=== PATIENT | female | born 1990 | race Caucasian/White ===

== ENCOUNTER 2019-11-20 12:20 | Inpatient (IN) | payer MEDICAID, SELFPAY ==
[2019-11-20] VITALS (7 sets, daily range): BP systolic 107–171; BP diastolic 83–89; PULSE 80–101; RESP 16–20; TEMP 36.6–36.8; O2SAT 96–99; BMI 37.2
--- NOTE | 2019-11-20 12:34 | W.ED.PSYCH ---
HPI - Psych General: Chief Complaint: Psychiatric Symptoms Stated Complaint: substance abuse Time Seen by Provider: 11/20/19 12:25 Source: patient and EMS Mode of arrival: EMS Limitations: no limitations History of Present Illness: HPI Narrative: 28-year-old female who is here from [place] as a direct admit. Patient stopping in the ER for COVID screening. She has a history of depression along with fentanyl abuse. Patient is voluntarily admitted to our psych unit. She denies any cough or fever. Patient is well-appearing here. Associated symptoms: Reports depression Review of Systems Const: Denies: fever(s), chills, body aches or change in appetite Eyes: Denies: blurry vision or eye discomfort ENMT: Denies: throat pain or dental pain Card: Denies: chest pain Resp: Denies: dyspnea GI: Denies: abdominal pain, nausea, vomiting or diarrhea : Denies: dysuria Musc: Denies: neck pain or back pain Skin/Breast: Denies: rash Neuro: Denies: headache(s) Psych: Reports: depression Uzair/Lymph: Denies: easy bruising All/Imm: Denies: urticaria Physical Exam Const: COMMON NORMALS: no acute distress, patient oriented x3 and healthy appearing HENMT: COMMON NORMALS: normocephalic and atraumatic HEAD & SCALP: normocephalic and atraumatic Eye: COMMON NORMALS: Equal, round and reactive pupils present and EOMs intact bilaterally PUPIL: Yes Equal, round and reactive pupils present Neck/C-Spine: COMMON NORMALS: full ROM and supple Chest: COMMONS NORMALS: normal inspection of the chest and normal palpation of entire chest wall Resp: COMMON NORMALS: normal respiratory effort, No retractions, No use of accessory muscles and clear to auscultation bilaterally AUSCULTATION: clear to auscultation bilaterally Cardio: COMMON NORMALS: regular rate, regular rhythm and No murmurs present (Cardio) RATE: regular rate RHYTHM: regular rhythm GI: COMMON NORMALS: Normal to inspection, nondistended, normoactive bowel sounds present, Soft to palpation, non-tender and no masses PALPATION: Yes Soft to palpation Extremity: COMMON NORMALS: normal to inspection and full ROM Neuro: COMMON NORMALS: patient oriented x3, moves all extremities and no focal motor deficits Psych: COMMON NORMALS: mental status grossly normal, Normal thought process present and cooperative THOUGHT PROCESS: Normal thought process present Skin: COMMON NORMALS: no rashes or lesions noted and no wounds GENERAL SKIN EXAM: no rashes or lesions noted MDM - Psych MDM Narrative: Medical decision making narrative: Patient presents here with depression and substance abuse. Patient's medically cleared here and is stable for admission to the psych unit Coding Level of Care Code ED Report Developer for Rosalinda Irene
[2019-11-20] MEDS: LORazepam 1 mg Tablet PO (13:00)
[2019-11-20] MEDS: methocarbamol 750 mg Tablet PO ×2 (15:34→21:48)
[2019-11-20] MEDS: dicyclomine 20 mg Tablet PO ×2 (15:34→21:48)
[2019-11-20] MEDS: hyDROXYzine 25 mg Capsule 50 MG PO ×2 (15:34→21:48)
--- NOTE | 2019-11-20 15:34 | PC.NURSE ---
PRN VISTARIL VISTARIL 5 MG PO PER PATIENT C/O ANXIETY. WILL CONTINUE TO MONITOR FOR MEDICATION EFFECTIVENESS.
--- NOTE | 2019-11-20 16:30 | PC.NURSE ---
PRN VISTARIL FOLLOW UP MEDICATION EFFECTIVE. NO FURTHER C/O ANXIETY. PATIENT LYING IN ROOM RESTING.
--- NOTE | 2019-11-20 16:39 | P.HP_ITS ---
Providers/Chief Complaint Admitting Physician: Jamey Concepcion Referral Source: Other ER ([facility]ly [facility], [facility]) Chief Complaint: substance abuse HPI NPU History of Present Illness Anaya Conley is a 28 year old female with whose brother, a former Marine, of an accidental overdose. His son, 3 years old, was left in orphan after his mother sold some fentanyl to a man who overdosed on it. The mother, having committed a felony in selling the drug, and her customer having fatally overdosed, mom was sent away for a very long time for felony murder. The 3-year-old is now living with the patient's stepmother and the patient does not want her son to end up a de facto orphan like her nephew. She has been using about a year, both heroin and fentanyl, and is so desperate to get out of the life that she decided to go into withdrawal and she is afraid she will fail, in which case she intends to fatally overdose on fentanyl like so many others. Needless to say, the patient is profoundly depressed. Review of Systems Narrative: Const: Denies: fever(s), chills, body aches or change in appetite Eyes: Denies: blurry vision or eye discomfort ENMT: Denies: throat pain or dental pain Card: Denies: chest pain Resp: Denies: dyspnea GI: Denies: abdominal pain, nausea, vomiting or diarrhea : Denies: dysuria Musc: Denies: neck pain or back pain Skin/Breast: Denies: rash Neuro: Denies: headache(s) Psych: Reports: depression Uzair/Lymph: Denies: easy bruising All/Imm: Denies: urticaria Meds NPU Home Medications Medication Instructions Recorded Confirmed Last Taken Type No Known Home Medications 11/20/19 11/20/19 Unknown History Allergies Allergy/AdvReac Type Severity Reaction Status Date / Time No Known Allergies Allergy Verified 11/20/19 12:48 [facility] NPU Other Psychiatric History: Other Psychiatric History: The patient has been grief stricken several times but has never sought psychiatric help nor taken any psychiatric medicines. This is her first hospitalization. Supplemental [facility] Information: The patient's grandfather killed himself. Her father attempted suicide twice. Her brother of fentanyl overdose. His is in [facility]. The patient has a 6-year-old son. 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 Mental Status Exam MSE Comments: This is a 28-year-old female who presents at her stated age. Mood is clearly despondent and affect is flat. Thought processes are integrated and free of any racing, blocking or looseness of association. There is no evidence of psychosis, such as but not limited to hallucinations, delusions and ideas of reference. Speech is of normal rate and volume, without aprosody dysarthria or pressure. Cognitive functions are intact and insight and judgment were fairly good. The patient denies any homicidal ideation and, given a chance to reenter recovery, she has no suicidal plans Vitals/I&O/Wt Last Vital Signs Temp 97.9 F 11/20/19 13:41 Pulse 101 H 11/20/19 13:41 Resp 18 11/20/19 13:41 BP 107/89 11/20/19 15:21 Pulse Ox 99 11/20/19 13:41 Weight last 48 hrs Weight 210 lb Weight 210 lb Physical Exam Narrative: EXAM NARRATIVE: Const: COMMON NORMALS: no acute distress, patient oriented x3 and healthy appearing HENMT: COMMON NORMALS: normocephalic and atraumatic HEAD & SCALP: normocephalic and atraumatic Eye: COMMON NORMALS: Equal, round and reactive pupils present and EOMs intact bilaterally PUPIL: Yes Equal, round and reactive pupils present Neck/C-Spine: COMMON NORMALS: full ROM and supple Chest: COMMONS NORMALS: normal inspection of the chest and normal palpation of entire chest wall Resp: COMMON NORMALS: normal respiratory effort, No retractions, No use of accessory muscles and clear to auscultation bilaterally AUSCULTATION: clear to auscultation bilaterally Cardio: COMMON NORMALS: regular rate, regular rhythm and No murmurs present (Cardio) RATE: regular rate RHYTHM: regular rhythm GI: COMMON NORMALS: Normal to inspection, nondistended, normoactive bowel sounds present, Soft to palpation, non-tender and no masses PALPATION: Yes Soft to palpation Extremity: COMMON NORMALS: normal to inspection and full ROM Neuro: COMMON NORMALS: patient oriented x3, moves all extremities and no focal motor deficits Psych: COMMON NORMALS: mental status grossly normal, Normal thought process present and cooperative Skin: COMMON NORMALS: no rashes or lesions noted and no wounds GENERAL SKIN EXAM: no rashes or lesions noted A&P Assessment and plan (1) Opiate addiction: Status: Acute (2) Major depressive disorder with current active episode: Status: Acute Involuntary Hold Information 96 Hour Hold: 96 Hour Involuntary Admission: No Attestations NPU Medical Necessity Statement*: This patient has just begun. I anticipate 8-10 midnights Time Spent in Patient Care: Greater than 35 minutes (>than 50% of time spent in counselling and/or direct pt care on unit) . 90 Coding Level of Care Code Acute Ceramic Painter for Rosalinda Irene Diagnoses Opiate addiction F11.20 Major depressive disorder with current active episode F32.9
[2019-11-20] MEDS: OLANZapine 5 mg ODT PO (17:12)
--- NOTE | 2019-11-20 17:12 | PC.NURSE ---
Addendum entered by Tiffanie Jarvis LPN 11/20/19 18:14: MEDICATION SOMEWHAT EFFECTIVE. PATIENT SITTING IN ROOM ON THE SIDE OF THE BED. Original Note: PRN ZYPREXA ZYDIS ZYPREXA ZYDIS 5MG PO PER PATIENT C/O AGITATION/ANXIETY. WILL CONTINUE TO MONITOR FOR MEDICATION EFFECTIVENESS.
[2019-11-20] MEDS: trazodone 50 mg Tablet PO ×2 (21:48→23:19)
[2019-11-20] MEDS: cloNIDine 0.1 mg Tablet PO (21:48)
[2019-11-20] MEDS: nicotine 2 mg Gum BUCCAL (23:17)
--- NOTE | 2019-11-20 23:30 | PC.NURSE ---
pt given scheduled hs clonidine, bentyl, robaxin as well as requested.nicorette, vistaril, and trazodone.
[2019-11-21 06:00] VITALS: BP 139/92; PULSE 99; RESP 16; TEMP 36.5; O2SAT 98
[2019-11-21 08:31] VITALS: BP 139/92
[2019-11-21] MEDS: cloNIDine 0.1 mg Tablet PO ×3 (08:31→20:51)
[2019-11-21] MEDS: dicyclomine 20 mg Tablet PO ×3 (08:31→20:51)
[2019-11-21] MEDS: methocarbamol 750 mg Tablet PO ×3 (08:31→20:51)
[2019-11-21] MEDS: levothyroxine 50 mcg Tablet PO (08:31)
[2019-11-21 13:29] VITALS: BP 118/80; PULSE 102; RESP 20; TEMP 36.7; O2SAT 98
--- NOTE | 2019-11-21 14:03 | P.PN_ITS ---
Subjective NPU Subjective: Interval history: The patient is wading through Mental Status Exam MSE Comments: This is a 28-year-old female who presents at her stated age. Mood is clearly despondent and affect is flat. Thought processes are integrated and free of any racing, blocking or looseness of association. There is no evidence of psychosis, such as but not limited to hallucinations, delusions and ideas of reference. Speech is of normal rate and volume, without aprosody dysarthria or pressure. Cognitive functions are intact and insight and judgment were fairly good. The patient denies any homicidal ideation and, given a chance to reenter recovery, she has no suicidal plans Vitals/I&O/Wt Last Vital Signs Temp 98.1 F 11/21/19 13:29 Pulse 102 H 11/21/19 13:29 Resp 20 H 11/21/19 13:29 BP 118/80 11/21/19 13:29 Pulse Ox 98 11/21/19 13:29 Weight last 48 hrs Weight 210 lb Weight 210 lb Physical Exam Narrative: EXAM NARRATIVE: EXAM NARRATIVE: Const: COMMON NORMALS: no acute distress, patient oriented x3 and healthy appearing HENMT: COMMON NORMALS: normocephalic and atraumatic HEAD & SCALP: normocephalic and atraumatic Eye: COMMON NORMALS: Equal, round and reactive pupils present and EOMs intact bilaterally PUPIL: Yes Equal, round and reactive pupils present Neck/C-Spine: COMMON NORMALS: full ROM and supple Chest: COMMONS NORMALS: normal inspection of the chest and normal palpation of entire chest wall Resp: COMMON NORMALS: normal respiratory effort, No retractions, No use of accessory muscles and clear to auscultation bilaterally AUSCULTATION: clear to auscultation bilaterally Cardio: COMMON NORMALS: regular rate, regular rhythm and No murmurs present (Cardio) RATE: regular rate RHYTHM: regular rhythm GI: COMMON NORMALS: Normal to inspection, nondistended, normoactive bowel sounds present, Soft to palpation, non-tender and no masses PALPATION: Yes Soft to palpation Extremity: COMMON NORMALS: normal to inspection and full ROM Neuro: COMMON NORMALS: patient oriented x3, moves all extremities and no focal motor deficits Psych: COMMON NORMALS: mental status grossly normal, Normal thought process present and cooperative Skin: COMMON NORMALS: no rashes or lesions noted and no wounds GENERAL SKIN EXAM: no rashes or lesions noted A&P Assessment and plan (1) Opiate addiction: Her systems requirements planner has organized a bed in a rehab program with placement to take place tomorrow. Status: Acute (2) Major depressive disorder with current active episode: The patient will require pharmacotherapy and recovery, taken with lots of psychotherapy to get through her grief over the horror that was her family Status: Acute Involuntary Hold Information 96 Hour Hold: 96 Hour Involuntary Admission: No Attestations NPU Medical Necessity Statement*: May anticipate 1 more midnight Time Spent in Patient Care: Greater than 35 minutes (>than 50% of time spent in counselling and/or direct pt care on unit) . 80 minutes Coding Level of Care Code Acute Box Toe Cementer for Rosalinda Irene Diagnoses Opiate addiction F11.20 Major depressive disorder with current active episode F32.9
[2019-11-21 15:12] VITALS: BP 118/80
[2019-11-21 15:23] LABS: Bilirubin Urine Neg (NEGATIVE); Blood Urine 2+ (Negative); Glucose Urine UA Norm (Normal); Ketones Urine Negative (Negative); Leukocyte Esterase Urine Negative (Negative); Nitrate Urine Negative (Negative); Protein Urine Neg (Negative); Specific Gravity, Urine 1.015 (1.005-1.030); Sulfosalicylic Acid Urine Negative (Negative); Urine Appearance Clear (CLEAR); Urine Color Yellow (Yellow); Urobilinogen Urine Norm (Negative); pH Urine 8 (5-7)
[2019-11-21 15:29] LABS: Bacteria Urine TRACE; Squamous Epithelial Cell Urine 0-4 (0-5)
[2019-11-21 15:30] LABS: Add Urine Culture? Yes; Trichomonas Urine 1+
[2019-11-21 20:21] VITALS: BP 150/89; PULSE 72; RESP 16; TEMP 36.7; O2SAT 98
[2019-11-21 20:51] VITALS: BP 150/89
[2019-11-21] MEDS: mirtazapine 15 mg Tablet PO (20:51)
[2019-11-21] MEDS: trazodone 50 mg Tablet PO ×2 (20:51→21:46)
[2019-11-21] MEDS: hyDROXYzine 25 mg Capsule 50 MG PO (20:51)
--- NOTE | 2019-11-21 21:24 | PC.NURSE ---
pt given scheduled clonidine (BP 150/89), bentyl, robaxin, remeron. pt also requested prn trazodone and visteril be given.
[2019-11-22 06:00] VITALS: BP 140/89; PULSE 78; RESP 16; TEMP 36.9; O2SAT 96
[2019-11-22] MEDS: methocarbamol 750 mg Tablet PO (07:43)
[2019-11-22] MEDS: cloNIDine 0.1 mg Tablet PO (07:43)
[2019-11-22] MEDS: dicyclomine 20 mg Tablet PO (07:43)
[2019-11-22] MEDS: levothyroxine 50 mcg Tablet PO (07:43)
[2019-11-22 07:45] VITALS: BP 140/89; PULSE 78; RESP 16; TEMP 36.9; O2SAT 96
--- NOTE | 2019-11-22 08:18 | P.DS_ITS ---
Diagnoses at Discharge Discharge Diagnosis (1) Opiate addiction: Status: Acute Problem details: Patient's been using for about a year. She is going to [facility] in [place]. (2) Major depressive disorder with current active episode: Status: Acute Problem details: There is a large component of grief. Reason for Visit Reason for Visit: substance abuse Hospital Course Hospital Course Placement in rehab is now in the offing. Grief continues. Involuntary Hold Information 96 Hour Hold: 96 Hour Involuntary Admission: No Mental Status Exam MSE Comments: This is a 28-year-old female who presents at her s tated age. Mood is clearly despondent and affect is flat. Thought processes are integrated and free of racing, blocking or looseness of association. There is no evidence of psychosis, such as but not limited to hallucinations, delusions and ideas of reference. Speech is of normal rate and volume, without aprosody, dysarthria or pressure. Cognitive functions are intact and insight and judgment are fairly good. The patient denies any homicidal ideation and, given a chance to reenter recovery, she has no suicidal plans. Physical Exam Narrative: EXAM NARRATIVE: Const: COMMON NORMALS: no acute distress, patient oriented x3, no limitations, healthy appearing and well nourished GENERAL APPEARANCE: cooperative and well developed HENMT: COMMON NORMALS: normocephalic, atraumatic, external ears normal, EAC's normal and Normal external nose present HEAD & SCALP: normal to inspection, normocephalic and atraumatic FACE & SINUS: normal facial exam and face symmetric NOSE: Normal external nose present and Normal nares present EXTERNAL EAR: Yes external ears normal EXTERNAL AUDITORY CANAL: EAC's normal MOUTH: Normal oral and palatal mucosa present, lip normal and tongue normal Eye: COMMON NORMALS: Equal, round and reactive pupils present and conjunctivae normal GENERAL EYE: appearance normal, both eyes and all related structures ALIGNMENT: Yes alignment normal PERIORBITAL: periorbital findings normal EYELID: eyelids normal CONJUNCTIVA: Yes conjunctivae normal SCLERA: sclerae normal PUPIL: Yes Equal, round and reactive pupils present Neck/C-Spine: COMMON NORMALS: full ROM, no lymphadenopathy, supple, no meningeal signs and no JVD GENERAL: Yes normal visual inspection and Yes trachea midline Chest: COMMONS NORMALS: normal inspection of the chest and normal palpation of entire chest wall and breasts. Resp: COMMON NORMALS: normal respiratory effort, No retractions and No use of accessory muscles EFFORT & INSPECTION: Yes able to speak in complete sentences and Yes symmetric chest movement AUSCULTATION: no crackles, no rales, no rhonchi and no wheezes Cardio: COMMON NORMALS: no JVD, regular rate, regular rhythm, S1 normal heart sound present and S2 normal heart sound present RATE: regular rate RHYTHM: regular rhythm HEART SOUNDS: S1 normal heart sound present, S2 normal heart sound present, no click, no gallops, no murmurs, no rubs and abnormal split S2 GI: COMMON NORMALS: Soft to palpation and No hepatosplenomegaly present PALPATION: Yes Soft to palpation, No Tenderness to palpation present (GI), No Guarding due to palpation present (GI), No Rigid due to palpation, Yes No hepatosplenomegaly present, No Hernia present, No Palpable mass present and No Pulsatile mass present : COMMON NORMALS: Yes no CVA tenderness BLADDER/KIDNEY EXAM: Yes no CVA tenderness EXTERNAL FEMALE EXAM: No Hernia present Back/Pelvis: COMMON NORMALS: no CVA tenderness, thoracic and lumbar spine normal to inspection, no thoracic nor lumbar tenderness and thoraco-lumbar ROM normal Extremity: COMMON NORMALS: normal to inspection, full ROM, capillary refill normal, no joint enlargement, no clubbing, cyanosis or edema and no calf tenderness Neuro: COMMON NORMALS: patient oriented x3, CN's II-XII intact bilaterally, moves all extremities, no focal motor deficits and no sensory deficits noted MENINGEAL SIGNS: Yes no meningeal signs SPEECH: speech normal Psych: See mental status. Skin: COMMON NORMALS: no rashes or lesions noted, turgor normal, no jaundice, no petechiae and no mottling GENERAL SKIN EXAM: no rashes or lesions noted and turgor normal Discharge Data Data Completed and Pending: Pending at discharge Category Date Time Status Urine Culture Rou abril Lab 11/21/19 14:57 Results Labs from last 24 hours 11/21/19 14:57 Urine Color Yellow Urine Appearance Clear Urine pH 8 H Ur Specific Gravit y 1.015 Urine Protein Neg Urine Glucose (UA) Norm Urine Ketones Negative Urine Blood 2+ H Urine Nitrate Negative Urine Bilirubin Neg Prot Sulfosalicyli c Acd Negative Urine Urobilinogen Norm Ur Leukocyte Janis ase Negative Urine RBC 10-15 H Urine WBC None Ur Squamous Epith Cells 0-4 H Amorphous Sediment Not Reportable Urine Bacteria Trace Urine Trichomonas 1+ H Vitals: Last Vital Signs Temp 98.5 F 11/22/19 07:45 Pulse 78 11/22/19 07:45 Resp 16 11/22/19 07:45 BP 140/89 11/22/19 07:45 Pulse Ox 96 11/22/19 07:45 Discharge Plan Discharge Patient Disposition: Rehab Fac w Plan Readm Condition: Stable Prescriptions: New levothyroxine 50 mcg Tablet 50 mcg PO DAILY 30 Days Qty: 30 RF: 3 mirtazapine 15 mg Tablet 15 mg PO BEDTIME 30 Days Qty: 30 RF: 3 No Action No Known Home Medications RF: 0 Discharge Orders: Discharge Order (Routine); Ordered 11/22/19 Ordered By: Jamey Concepcion Referrals: Preferred [facility] [Other] (You are expected to report for inpatient residential treatment. You meed to be there before 2:00pm.) Discharge Diet: Usual diet Discharge Activity: Resume usual activity Discharge Attestations NPU Time Spent in Discharge Care*: greater than 30 min Specific Discharge Activities: Specific discharge activities: educating patient, discussing with correctional case records supervisor/social workers/dc planners, documenting/o ther paperwork and evaluating patient/reviewing data Status at Discharge: Cognitive status at discharge: cognitively intact , Behavioral status at discharge: cooperative , Functional status at discharge: independent ambulation Overall status at discharge: patient is progressing back to baseline Coding Level of Care Code Acute Supervisor Benzene Refining for Rosalinda Fwd Diagnoses Opiate addiction F11.20 Major depressive disorder with current active episode F32.9
[2019-11-22] MEDS: metroNIDAZOLE 500 MG Tablet 2000 MG PO (09:26)
== END 2019-11-22 09:29 | disposition home or self-care (01) | DRG 885 ==
LOC: ER 12:44 → NP 12:51
DX: F32.3 Major depressive disorder, single episode, severe with psychotic features (principal); F11.20 Opioid dependence, uncomplicated
CPT/HCPCS: 12345; 81001; 87077; 87086; 87186; 99284